=== PATIENT | male | born 1970 | race Caucasian/White ===

== ENCOUNTER 2024-03-09 13:49 | Emergency (ER) | payer BC ==
[2024-03-09 13:59] VITALS: BP 156/88; PULSE 83; RESP 20; TEMP 98.2; BMI 38.0
[2024-03-09] MEDS ORDERED: BACITRACIN ZINC 15 GM TUBE TOPICAL OINTMENT ONE (14:50)
[2024-03-09] MEDS ORDERED: KETOROLAC TROMETHAMINE 30 MG/1 ML VIAL ONE (15:08)
[2024-03-09] MEDS: KETOROLAC TROMETHAMINE 30 MG/1 ML VIAL IM ONE (15:10)
== END 2024-03-09 15:24 | disposition home or self-care (01) ==
LOC: JERFT 13:49
PROC: 3E023GC Introduction of Other Therapeutic Substance into Muscle, Percutaneous Approach (ICD-10-PCS; principal; 2024-03-09)
DX: S90.821A Blister (nonthermal), right foot, initial encounter (principal); X58.XXXA Exposure to other specified factors, initial encounter; Y93.01 Activity, walking, marching and hiking
CPT/HCPCS: 87070; 87186; 87205; 99284-25